=== PATIENT | female | born 1990 | race Native Hawaiian/Other Pacific Islander ===

== ENCOUNTER 2017-04-02 19:55 | Emergency (ER) | payer OTHER ==
[~2017-04-02] VITALS: Ht 167.6 cm; Wt 86.2 kg
[2017-04-02 20:12] VITALS: BP 129/80
--- NOTE | 2017-04-02 21:24 | NUR ---
PT TAKEN TO OF
--- NOTE | 2017-04-02 21:46 | NUR ---
27/F c/o right index pain x 4 days. Finger swelling, redness noted, c/o pain. Denies trauma. AOX4, clear speech. VSS.
--- NOTE | 2017-04-02 21:49 | NUR ---
Patient being evaluated by Dr. Ferguson at bedside.
[2017-04-02 22:16] VITALS: BP 122/76
--- NOTE | 2017-04-02 22:16 | NUR ---
Patient discharged with v/s stable. Written and verbal after care instructions given and explained. Patient alert, oriented and verbalized understanding of instructions. Ambulatory with steady gait. All questions addressed prior to discharge. ID band removed. Patient advised to follow up with PMD. Rx of CLINDAMYCIN [facility] QID given. Patient educated on indication of medication including possible reaction and side effects. Opportunity to ask questions provided and answered.
== END 2017-04-02 22:16 | disposition home or self-care (01) ==
LOC: MED 19:55
DX: L03.011 Cellulitis of right finger (principal); J45.909 Unspecified asthma, uncomplicated